=== PATIENT | female | born 2000 | race Caucasian/White ===

== ENCOUNTER 2023-03-20 11:16 | Emergency (ER) | payer MEDICAID, OTHER ==
[2023-03-20] MEDS ORDERED: Adacel Vial IM ONE ×2 (11:34→11:56)
[2023-03-20 11:39] VITALS: BP 152/99; PULSE 87; RESP 18; O2SAT 98
--- NOTE | 2023-03-20 11:52 | ERPHSYRPT ---
- History of Present Illness Time Seen by Provider: 03/20/23 11:47 Source: patient Exam Limitations: no limitations Patient Subjective Stated Complaint: cut finger on boner meat at work Triage Nursing Assessment: Patient reports to ER with laceration to left hand 5th digit from work related incident. Patient reports that she sliced her finger on a boner meat today at approx 1045. Patient reports that she is not up to date on tetnus vaccine. Patient reports pain at this time is 1/10. No active bleeding at this time. Finger cleansed with normal saline and hibaclense solution. Physician History: cut left 5th finger on boner meat at work Patient reports to ER with laceration to left hand 5th digit from work related incident. Patient reports that she sliced her finger on a boner meat today at approx 1045. Patient reports that she is not up to date on tetnus vaccine. Patient reports pain at this time is 1/10. Occurred: just prior to arrival Severity of Pain-Max: moderate Severity of Pain-Current: moderate Extremities Pain Location: 5th finger: left (vertical superficial laceration with proximal flap) Modifying Factors: Improves With: cold therapy Associated Symptoms: none Allergies/Adverse Reactions: No Known Drug Allergies Allergy (Verified 03/20/23 11:39) Home Medications: No Reportable Medications [No Reported Medications] 03/20/23 [History] Hx Tetanus, Diphtheria Vaccination/Date Given: No Hx Influenza Vaccination/Date Given: Yes Immunizations Up to Date: Yes Travel Risk - International Travel Have you traveled outside of the country in past 3 weeks: No - Coronavirus Screening Are you exhibiting any of the following symptoms?: No Close contact with a COVID-19 positive Pt in past 14-21 Days: No - Vaccine Status Have you recieved a Covid-19 vaccination: No - Review of Systems Constitutional: No Symptoms Eyes: No Symptoms Ears, Nose, & Throat: No Symptoms Respiratory: No Symptoms Cardiac: No Symptoms Abdominal/Gastrointestinal: No Symptoms Genitourinary Symptoms: No Symptoms Musculoskeletal: No Symptoms Skin: Other (laceration 4 cms long left 5th finger dorsum area) - Past Medical History Pertinent Past Medical History: No Neurological History: No Pertinent History ENT History: No Pertinent History Cardiac History: No Pertinent History Respiratory History: No Pertinent History Endocrine Medical History: No Pertinent History Musculoskeletal History: No Pertinent History GI Medical History: No Pertinent History History: No Pertinent History Psycho-Social History: No Pertinent History Female Reproductive Disorders: No Pertinent History - Past Surgical History Past Surgical History: No Neuro Surgical History: No Pertinent History Cardiac: No Pertinent History Respiratory: No Pertinent History Gastrointestinal: No Pertinent History Genitourinary: No Pertinent History Musculoskeletal: No Pertinent History Female Surgical History: No Pertinent History - Social History Smoking Status: Never smoker Exposure to second hand smoke: No Drug Use: none Patient Lives Alone: Yes - Female History Hx Now: No - Nursing Vital Signs Nursing Vital Signs: Initial Vital Signs Pulse Rate 87 03/20/23 11:30 Respiratory Rate 18 03/20/23 11:30 Blood Pressure 152/99 03/20/23 11:30 O2 Sat by Pulse Oximetry 98 03/20/23 11:30 Pain Scale Pain Intensity 1 - Physical Exam General Appearance: alert Eyes, Ears, Nose, Throat Exam: moist mucous membranes Neck Exam: normal inspection, non-tender, supple Cardiovascular/Respiratory Exam: chest non-tender, normal breath sounds, regular rate/rhythm, no respiratory distress Abdominal Exam: non-tender, No guarding Back Exam: normal inspection, No vertebral tenderness Shoulder Exam: normal inspection Elbow/Forearm Exam: normal inspection Wrist Exam: normal inspection Hand Exam: nail injury (left 5th finger, laceration 4 cms long, superficial), soft tissue tenderness Neuro/Tendon Exam: normal sensation, normal motor functions Mental Status Exam: alert, oriented x 3, cooperative Skin Exam: normal color, warm, dry SpO2: 98 Procedures - Laceration/Wound Repair Left Finger Time of Procedure: 11:51 Wound Location: Left (5th finger) Wound Length (cm): 4 Wound's Depth, Shape: superficial Wound Explored: clean Irrigated: Yes Hibiclens Prep: Yes Wound Repaired With: Steri-strips, Dermabond Sterile Dressing Applied?: Yes - Course Nursing assessment & vital signs reviewed: Yes - Radiology Exams Hand X-ray Interpretation: Reviewed by me, Negative, No Fracture Ordered Tests: Active Orders 24 hr Category Date Time Status Wound Care STAT Care 03/20/23 11:35 Active HAND (MINIMUM 3 VIEWS) Stat Exams 03/20/23 11:36 Taken Medication Summary Discontinued Medications Generic Name Dose Route Start Last Admin Trade Name Freq PRN Reason Stop Dose Admin Diphtheria/Tetanus/Acell Pertussis 0.5 ml 03/20/23 11:34 03/20/23 11:57 Tdap --Diph,Pertuss(Acell),Tet Vac/Pf 0.5 Ml Vial IM 03/20/23 11:35 0.5 ml .ONCE ONE Administration Diphtheria/Tetanus/Acell Pertussis Confirm 03/20/23 11:56 Tdap --Diph,Pertuss(Acell),Tet Vac/Pf 0.5 Ml Vial Administered 03/20/23 11:57 Dose 0.5 ml IM .STK-MED ONE - Progress Progress: improved Counseled pt/family regarding: diagnosis, need for follow-up (with hand surgeon,), rad results Medical Desision Making - Diagnostic Testing Diagnostic test were ordered, analyzed, and reviewed by me: Yes Radiological Interpretation: Reviewed by me - Risk of complications Low Risk: Low risk of morbidity from additional dx testing or treatment The pt has a mod risk of morbidity or mortality based on: Need for minor surgical intervention in patient with know risk factors - Departure Departure Disposition: Home Clinical Impression: Laceration of finger of left hand with damage to nail Qualifiers: Encounter type: initial encounter Finger: little finger Foreign body presence: without foreign body Qualified Code(s): S61.317A - Laceration without foreign body of left little finger with damage to nail, initial encounter Condition: Stable Critical Care Time: No Referrals: CHRISTIN VALLADARES, [NON-STAFF PHY W/O PRIVILEGES] - Follow up/PCP as directed Instructions: Wound Care (DC), Laceration Repair With Glue (DC) Additional Instructions: FOLLOW UP ON 03/21/[address] TORREY CINTRON AT [phone]. Discharge/Care Plan СВЕТЛАНА NICHOLE was seen on 03/20/23 in the Emergency Room. The patient was counseled regarding Diagnosis,Lab results, Imaging studies, need for follow up and when to return to the Emergency Room. Prescriptions given: Discharge Note I have spoken with the patient and/or caregivers. I have explained the patient's condition, diagnosis and treatment plan based on the information available to me at this time. I have answered the patient's and/or caregiver's questions and addressed any concerns. The patient and/or caregivers have as good understanding of the patient's diagnosis, condition and treatment plan as can be expected at this point. The vital signs have been stable. The patient's condition is stable and appropriate for discharge from the emergency department. The patient will pursue further outpatient evaluation with the primary care physician or other designated or consulting physician as outlined in the discharge instructions. The patient and/or caregivers are agreeable to this plan of care and follow-up instructions have been explained in detail. The patient and/or caregivers have received these instruction. The patient/and or caregivers are aware that any significant change in condition or worsening of symptoms should prompt an immediate return to this or the closest emergency department or call 911. СВЕТЛАНА NICHOLE was seen on 03/20/23 n the Emergency Room. At that time you were treated for an emergent condition, during your visit Laboratory, Radiology and/or other procedures may have been ordered. It is very important that you follow-up with your Primary Care Physician NO FAMILY DOCTOR within the next 24- 48 hours to review your Emergency Room visit and the final results of testing t hat was ordered. Some test results such as Urine Cultures, Blood Cultures, and other cultures if ordered will not be finalized for 24-48 hours. If you do not have a Primary Care Provider please call the medical records department at [phone] ext [phone] to obtain a copy of your results or you may sign into our patient portal to obtain these results by visiting us @ [email or web address] and completing the following steps: 1. Click on the Patient Portal link 2. Click the Patient Self Enrollment Link to complete the enrollment form and entering your 3. Once the enrollment form is completed you will receive an email with a temporary ID and password at the email address you provided. 4. Next choose a user name and password. Your user name must be at least 4 characters long and your password must be at least 4 characters long. 5. Choose a security question from the list and provide your answer to the question. If you already have signed into the Health Portal you may access your Health Care Information 14/03 by the following steps: 1. Login to our website @ [email or web address] 2. Enter your original user name and password. FAQS The [facility] Health Portal is an online tool that contains your Lab Results, Radiology Reports, Visit History, Discharge Instructions and Health Summary Lab and Radiology Results will not be available for 72 hours on the portal. The Portal is a secure site, passwords are encryted and URLs are re-written so they cannot be copied and pasted. You and authorized family members are the only ones who can access your Portal. Also there is a timeout feature that protects your information if you leave the Portal page open. If you have technical difficulty please use the Contact Us link on the page this will allow you to submit any questions you have regarding the Portal or you may contact the Medical Record Department at [phone] ext [phone].
--- NOTE | 2023-03-20 20:04 | XRAY ---
Indication: 5th finger laceration. Comparison: None 3 view left hand demonstrates mild 5th finger soft tissue swelling. No other bony, articular, or soft tissue abnormalities.
== END 2023-03-20 12:37 | disposition home or self-care (01) ==
LOC: ED 11:16
DX: S61.317A Laceration without foreign body of left little finger with damage to nail, initial encounter (principal); W31.82XA Contact with other commercial machinery, initial encounter; Y93.G1 Activity, food preparation and clean up; Y92.512 Supermarket, store or market as the place of occurrence of the external cause; Y99.0 Civilian activity done for income or pay; Z28.310 Unvaccinated for COVID-19; Z23 Encounter for immunization
CPT/HCPCS: 12002; 73130; 90471; 90715; 99283